=== PATIENT | male | born 1970 | race Caucasian/White ===

== ENCOUNTER → 2016-07-16 | Outpatient (CLI) | payer MEDICAID ==
[2016-07-16 15:42] LABS: AMPHETAMINES/METAMPHETAMINES NEGATIVE ng/mL (<1000)
== END ==
LOC: LAB 14:32
PROVIDERS: Emergency Medicine
DX: Z79.899 Other long term (current) drug therapy (principal)

== ENCOUNTER → 2016-08-13 | Outpatient (CLI) | payer MEDICAID ==
[2016-08-13 15:43] LABS: AMPHETAMINES/METAMPHETAMINES NEGATIVE ng/mL (<1000)
--- NOTE | 2016-08-15 09:29 | RADIOLOGY REPORT PS360 ---
MRI-L-SPINE W/O, MRI-3D RENDERING/MYELOGRAM HISTORY: Low back pain, bilateral leg pain and numbness and tingling LOWER BACK PAIN ORDERING PHYSICIAN: Raymon Machado MD PATIENT AGE: 46 years COMPARISON: None TECHNIQUE: Standard multiplanar multiecho sequences are performed without contrast. 3-D MIP and myelographic images are also rendered and reviewed FINDINGS: There is normal alignment. The spinal cord ends at the T12-L1 level. L1-L2, L2-L3, and L3-L4 are unremarkable aside from minimal bulging disc at L3-L4 without impingement. L4-L5: Mild degenerative anterolisthesis of L4 on L5 of 3 mm. Mild facet and ligamentum hypertrophy with bilateral lateral recess narrowing and foraminal narrowing which is somewhat greater on the left. There is borderline canal stenosis at this level L5-S1 is unremarkable. No disc herniation, fracture, or other significant anomalies. There are bilateral renal cysts incidentally noted. IMPRESSION: 1. Mild degenerative anterolisthesis of L4 on L5 of 3 millimeters with facet and ligamentum hypertrophy with bilateral lateral recess narrowing and foraminal narrowing which is somewhat greater on the left. There is borderline canal stenosis at this level 2. No disc herniation or other significant anomalies.
== END ==
LOC: RAD 14:24
PROVIDERS: Emergency Medicine
DX: M54.5 Low back pain (principal); Z79.899 Other long term (current) drug therapy

== ENCOUNTER → 2016-12-07 | Outpatient (CLI) | payer MEDICAID ==
[2016-12-07 19:41] LABS: AMPHETAMINES/METAMPHETAMINES NEGATIVE ng/mL (<1000)
== END ==
LOC: LAB 18:10
PROVIDERS: Emergency Medicine
DX: Z79.899 Other long term (current) drug therapy (principal)

== ENCOUNTER → 2017-02-08 | Outpatient (CLI) | payer MEDICAID ==
[2017-02-08 21:18] LABS: AMPHETAMINES/METAMPHETAMINES NEGATIVE ng/mL (<1000)
== END ==
LOC: LAB 18:23
PROVIDERS: Emergency Medicine
DX: Z79.899 Other long term (current) drug therapy (principal)

== ENCOUNTER → 2017-03-08 | Outpatient (CLI) | payer MEDICAID ==
[~2017-03-08] MED LIST: ALLOPURINOL300 MG; BUPROPION75 MG; GEMFIBROZIL600 M1; LEXAPRO 20 MG T20 MG; NEURONTIN600 MG; NORCO 325 MG-101 TAB; VALIUM5 MG; ZESTRIL 20MG TA20 MG
[2017-03-08 19:45] LABS: AMPHETAMINES/METAMPHETAMINES NEGATIVE ng/mL (<1000)
== END ==
LOC: LAB 18:10
PROVIDERS: Emergency Medicine
DX: Z79.899 Other long term (current) drug therapy (principal)

== ENCOUNTER → 2017-04-06 | Outpatient (CLI) | payer MEDICAID ==
[2017-04-06 19:52] LABS: AMPHETAMINES/METAMPHETAMINES NEGATIVE ng/mL (<1000)
== END ==
LOC: LAB 17:21
PROVIDERS: Emergency Medicine
DX: Z79.899 Other long term (current) drug therapy (principal)

== ENCOUNTER → 2017-06-03 | Outpatient (CLI) | payer MEDICAID ==
[2017-06-03 18:45] LABS: AMPHETAMINES/METAMPHETAMINES NEGATIVE ng/mL (<1000)
== END ==
LOC: LAB 17:50
PROVIDERS: Emergency Medicine
DX: Z79.899 Other long term (current) drug therapy (principal)